=== PATIENT | male | born 1990 | race Caucasian/White ===

== ENCOUNTER → 2020-06-04 09:12 | Outpatient (BNVA) | payer SELFPAY | PROVIDERS: Visit Provider Internal Medicine | DX: M79.10 Myalgia, unspecified site (principal); M54.5 Low back pain; M54.2 Cervicalgia; Z11.1 Encounter for screening for respiratory tuberculosis | CPT/HCPCS: 99204 ==

== ENCOUNTER 2023-07-06 11:39 | Emergency (ER) | payer OTHER, SELFPAY ==
[2023-07-06 11:57] VITALS: BP 120/81; PULSE 78; RESP 18; TEMP 36.4; O2SAT 100; BMI 24.3
[2023-07-06 12:03] LABS: Basophils % 0.1 %; Eosinophils # 0.2 10^3/uL (0.0-0.8); Eosinophils % 2.6 %; Hematocrit 45.6 % (37-53); Lymphocytes # 1.9 10^3/uL (0.8-4.8); Mean Corpuscular HGB Conc 35.1 g/dL (30-55); Mean Corpuscular Hemoglobin 30.7 pg (27-33); Mean Corpuscular Volume 87.5 fl (82-101); Mean Platelet Volume 10.7 fL (7.4-10.4); Monocytes # 1.1 10^3/uL (0.2-0.9); Neutrophils # 5.82 10^3/uL (1.8-7.7); Neutrophils % 64.1 %; Nucleated Red Blood Cells % 0 %; Platelet Count 186 10^3/cmm (157-399); Red Blood Count 5.21 10^6/uL (3.85-5.65); Red Cell Distribution Width 12.9 % (12.1-15.1); White Blood Count 9.09 10^3/uL (3.29-11.43)
[2023-07-06 12:23] LABS: Alanine Aminotransferase 26 U/L (0-41); Alkaline Phosphatase 82 U/L (40-130); Anion Gap 10.1 (5-19); Aspartate Amino Transferase 15 U/L (0-40); Blood Urea Nitrogen 12 mg/dL (6-20); Calcium 9.1 mg/dL (8.5-10.5); Carbon Dioxide 30 mmol/L (22-29); Chloride 102 mmol/L (98-107); Globulin 2.5 g/dL (1.3-4.6); Glomerular Filtration Rate 86.6 mL/min (90-130); Glucose 107 mg/dL (65-115); Lipase 27 U/L (13-60); Osmolality Calculated 286 mOsm/kg (285-295); Potassium 4.1 mmol/L (3.5-5.1); Sodium 138 mmol/L (136-145); Total Bilirubin 0.3 mg/dL (0.15-1.2); Total Protein 6.5 g/dL (6.6-8.7)
--- NOTE | 2023-07-06 13:54 | CTR_ITS ---
PROCEDURE INFORMATION: Exam: CT Abdomen And Pelvis With Contrast Exam date and time: 07/06/2023 3:46 PM Age: 33 years old Clinical indication: Abdominal pain; Generalized; Additional info: Abd pain, n/v, HX of hernia, R/O obstruction TECHNIQUE: Imaging protocol: Computed tomography of the abdomen and pelvis with contrast. Radiation optimization: All CT scans at this facility use at least one of these dose optimization techniques: automated exposure control; mA and/or kV adjustment per patient size (includes targeted exams where dose is matched to clinical indication); or iterative reconstruction. Contrast material: OMNI 350; Contrast volume: 100 ml; Contrast route: INTRAVENOUS (IV); REPORTING DATA: Count of CT and Cardiac NM exams in prior 12 months: This patient has received 0 known CTs and 0 known cardiac nuclear medicine studies in the 12 months prior to the current study. COMPARISON: MRI Bilat Hips w/wo [id number] 03/12/2019 11:37 AM RADIATION DOSE METRICS: Total DLP (mGy-cm): 410 FINDINGS: Lungs: No significant pathology at the imaged lung bases. Liver: No significant liver pathology. Gallbladder and bile ducts: No significant gallbladder pathology. No biliary dilatation. Pancreas: No significant pancreatic pathology. Spleen: No significant splenic pathology. Adrenal glands: No significant adrenal pathology. Kidneys and ureters: Minimal asymmetric left renal cortical atrophy. Stomach and bowel: Large amount of colonic stool. Appendix: No appendiceal pathology evident. Intraperitoneal space: No ascites. Vasculature: No abdominal aortic aneurysm. Lymph nodes: Mild mesenteric lymphadenopathy with nodes in the left abdomen measuring up to 9 mm short axis. Urinary bladder: Urinary bladder is nondistended limiting assessment of the wall. Reproductive: Moderate prostatomegaly. Bones/joints: No significant bony pathology. Soft tissues: Moderate fat containing umbilical hernia. CT/CT abdomen pelvis w con* [id number] IMPRESSION: 1. No acute pathology. 2. Moderate fat containing umbilical hernia. 3. Large amount of colonic stool. 4. Mesenteric lymphadenopathy.
--- NOTE | 2023-07-06 13:55 | W.ED.NAVMDI ---
HPI - Nausea/Vomiting/Diarrhea General: Chief complaint: Nausea/Vomiting/Diarrhea Stated complaint: abd pain, N/V/D Time Seen by Provider: 07/06/23 13:46 History of Present Illness: 33-year-old male patient comes in today for complaints of gastric pain with nausea vomiting and diarrhea for 5 days. Patient appears nontoxic. Patient at this time takes medication for GERD, NSAID and duloxetine for rheumatoid arthritis. Patient reports about 5 days ago become ill his is also had a similar illness but it has persisted and he has had increasing mid epigastric pain. Patient appears in mild to no pain at rest. Pain is aggravated by eating. Patient also reports a umbilical hernia. Patient denies any drugs or alcohol including marijuana. Patient denies nicotine use. Associated nausea: Yes Associated symtoms: Reports nausea; Denies chest pain Review of Systems General: Reports: 10 or more systems reviewed and unremarkable except in HPI and below Const: Denies: fever(s) Card: Denies: chest pain Resp: Denies: dyspnea GI: Reports: abdominal pain, nausea, vomiting and diarrhea : Denies: difficulty urinating Musc: Denies: neck pain PFSH ED PFSH: Medical History GERD (gastroesophageal reflux disease) Rheumatoid arthritis Fibromyalgia Inflammatory polyarthritis Surgical History Hx of vasectomy Family History Mother In good health Other Arthritis Hypertension Social History Smoking and tobacco/nicotine status: never used tobacco/nicotine Alcohol intake: never Substance/Drug Use: never Household members: significant other Housing: House Current occupational status: employed Current occupation: [employer] Physical Exam Const: COMMON NORMALS: alert HENMT: COMMON NORMALS: normocephalic HEAD & SCALP: normocephalic Neck/C-Spine: COMMON NORMALS: full ROM Resp: COMMON NORMALS: normal respiratory effort Cardio: COMMON NORMALS: regular rate RATE: regular rate GI: PALPATION: Yes Firmness to palpation present (GI), Yes Tenderness to palpation present (GI) (Midepigastric) and Yes Other GI palpation findings present (Reducible umbilical hernia) Extremity: COMMON NORMALS: full ROM Neuro: SENSORIUM/ORIENTATION: Yes alert Skin: COMMON NORMALS: turgor normal GENERAL SKIN EXAM: turgor normal Course Vital Signs: Vital signs: Vital Signs Temperature 97.6 F 07/06/23 11:57 Pulse Rate 78 07/06/23 11:57 Respiratory Rate 18 07/06/23 11:57 Blood Pressure 120/81 07/06/23 11:57 Pulse Oximetry 100 07/06/23 11:57 Oxygen Delivery Me thod Room Air 07/06/23 11:57 MDM - Nausea/Vomiting/Diarrhea Medical Decision Making 33-year-old male comes in with epigastric pain along with nausea vomiting diarrhea for 5 days. On exam abdomen slightly firm with normal active bowel sounds. Patient does have a reducible umbilical hernia. No significant swelling in the extremities. Skin is warm and dry. Good perfusion of the skin is noted. Negative CVA tenderness. Vital signs are normal. Differential diagnosis includes not limited to hiatal hernia, pancreatitis, gastroenteritis, bowel obstruction, incarcerated hernia of the umbilicus, dehydration. CBC was unremarkable, CMP noted no significant abnormalities. CBC and CMP was unremarkable. CT of the abdomen and pelvis noted significant mild constipation and a fat-containing hernia but no signs of obstruction or other infectious process. Patient be started on some metoclopramide to help with nausea and vomiting along with gastritis, and patient will also be started on some MiraLAX to help with constipation. Recommend follow-up with primary care return to the ER as needed. Lab Data 07/06/23 11:50 07/06/23 11:50 Radiology Impressions Abdomen/Pelvis CT 07/06/23 13:54 IMPRESSION: 1. No acute pathology. 2. Moderate fat containing umbilical hernia. 3. Large amount of colonic stool. 4. Mesenteric lymphadenopathy. Laboratory Results WBC 9.09 10^3/uL (3.29-11.43) 07/06/23 11:50 RBC 5.21 10^6/uL (3.85-5.65) 07/06/23 11:50 Hgb 16.00 g/dL (11.27-16.99) 07/06/23 11:50 Hct 45.6 % (37-53) 07/06/23 11:50 MCV 87.5 fl (82-101) 07/06/23 11:50 MCH 30.7 pg (27-33) 07/06/23 11:50 MCHC 35.1 g/dL (30-55) 07/06/23 11:50 RDW 12.9 % (12.1-15.1) 07/06/23 11:50 Plt Count 186 10^3/cmm (157-399) 07/06/23 11:50 MPV 10.7 fL (7.4-10.4) H 07/06/23 11:50 Neut % (Auto) 64.1 % 07/06/23 11:50 Lymph % (Auto) 21.0 % 07/06/23 11:50 [place] % (Auto) 12.0 % 07/06/23 11:50 Eos % (Auto) 2.6 % 07/06/23 11:50 Baso % (Auto) 0.1 % 07/06/23 11:50 Neut # (Auto) 5.82 10^3/uL (1.8-7.7) 07/06/23 11:50 Lymph # (Auto) 1.9 10^3/uL (0.8-4.8) 07/06/23 11:50 [place] # (Auto) 1.1 10^3/uL (0.2-0.9) H 07/06/23 11:50 Eos # (Auto) 0.2 10^3/uL (0.0-0.8) 07/06/23 11:50 Baso # (Auto) 0.0 10^3/uL (0.0-0.1) 07/06/23 11:50 Nucleated RBC % (auto) 0 % 07/06/23 11:50 Nucleated RBCs # 0.0 /100WBC 07/06/23 11:50 Sodium 138 mmol/L (136-145) 07/06/23 11:50 Potassium 4.1 mmol/L (3.5-5.1) 07/06/23 11:50 Chloride 102 mmol/L (98-107) 07/06/23 11:50 Carbon Dioxide 30 mmol/L (22-29) H 07/06/23 11:50 Anion Gap 10.1 (5-19) 07/06/23 11:50 BUN 12 mg/dL (6-20) 07/06/23 11:50 Creatinine 1.0 mg/dL (0.7-1.2) 07/06/23 11:50 GFR Calculation 86.6 mL/min (90-130) L 07/06/23 11:50 Glucose 107 mg/dL (65-115) 07/06/23 11:50 Calculated Osmolality 286 mOsm/kg (285-295) 07/06/23 11:50 Calcium 9.1 mg/dL (8.5-10.5) 07/06/23 11:50 Total Bilirubin 0.3 mg/dL (0.15-1.2) 07/06/23 11:50 AST 15 U/L (0-40) 07/06/23 11:50 ALT 26 U/L (0-41) 07/06/23 11:50 Alkaline Phosphatase 82 U/L (40-130) 07/06/23 11:50 Total Protein 6.5 g/dL (6.6-8.7) L 07/06/23 11:50 Albumin 4.0 g/dL (3.5-5.2) 07/06/23 11:50 Globulin 2.5 g/dL (1.3-4.6) 07/06/23 11:50 Lipase 27 U/L (13-60) 07/06/23 11:50 All radiology interpretation(s) finalized by discharge Discharge Plan Discharge Patient Disposition: Home Clinical Impression: Gastritis Qualifiers: Gastritis type: unspecified gastritis Chronicity: unspecified Gastritis bleeding: without bleeding Qualified Code(s): K29.70 - Gastritis, unspecified, without bleeding Constipation Qualifiers: Constipation type: unspecified constipation type Qualified Code(s): K59.00 - Constipation, unspecified Condition: Stable Prescriptions: New metoclopramide HCl 10 mg tablet 10 mg PO Q6H 7 Days Qty: 28 0RF Miralax 17 gram/dose powder 17 g PO TIDWM Qty: 510 0RF No Action omeprazole 40 mg capsule,delayed release(DR/EC) 40 mg PO BID Qty: 120 1RF sucralfate [Carafate] 1 gram tablet 1 g PO BID Qty: 30 0RF duloxetine [Cymbalta] 60 mg capsule,delayed release(DR/EC) 60 mg PO BID 90 Days Qty: 180 1RF pregabalin 75 mg capsule 75 mg PO BID meloxicam 15 mg tablet 15 mg PO QPM Discharge Orders: Discharge ED (Routine); Ordered 07/06/23 Ordered By: Bill Telles Referrals: Gerardo Choudhary MD [Primary Care Provider] - Discharge Diet: Usual diet Discharge Activity: Increase activity as tolerated Patient Instructions: Constipation (ED) Activity Restrictions/Additional Instructions: Continue with routine medications as directed. Drink plenty of water and fluids. Take metoclopramide 10 mg 30 minutes before each meal of the day and 30 minutes before bedtime to help with nausea and vomiting and constipation. Take MiraLAX 17 g mixed in 8 ounces of water up to 3 times a day for control of constipation. Drink at least 2 L of water a day. Follow-up with primary care for further instructions. Return to ED for fever greater than 100.4, blood in vomit or stool, or new concerns. 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
[2023-07-06] MEDS: sodium chloride 0.9% 1,000 ML 999 ML IV (15:09)
[2023-07-06] MEDS: iohexol 350 mg/mL 500 mL Btl (per mL) IV (15:41)
== END 2023-07-06 16:54 | disposition home or self-care (01) ==
PROVIDERS: Emergency Medicine; Emergency Provider Nurse Practitioner Family; PCP Family Medicine
DX: K42.9 Umbilical hernia without obstruction or gangrene (principal); R59.1 Generalized enlarged lymph nodes; K29.70 Gastritis, unspecified, without bleeding; K59.00 Constipation, unspecified
CPT/HCPCS: 36415; 74177; 80053; 83690; 85025; 96360; 99285; J7030; Q9967

== ENCOUNTER 2023-07-20 07:14 | Day surgery (SDC) | payer OTHER, SELFPAY ==
[2023-07-20] VITALS (36 sets, daily range): BP systolic 89–130; BP diastolic 51–104; PULSE 81–121; RESP 17–33; TEMP 36.2–37.1; O2SAT 86–100; BMI 23.6
--- NOTE | 2023-07-20 06:34 | W.PM.OPSFHP ---
Same Day Surgery H&P Indication for Procedure/HPI DATE OF PROCEDURE: July 20, 2023 CHIEF COMPLAINT/INDICATIONFOR SURGICAL PROCEDURE: umbilical hernia PREOP DIAGNOSIS: umbilical hernia PLANNED PROCEDURE: Operation Date: 07/20/23 08:50 [place] p [id number] open umbilical hernia repair with mesh,: K42.9(Not Applicable) - Burak Dodson MD Medications/Allergies* Home Medications Medication Instructions Recorded Confirmed Type meloxicam 15 mg tablet 15 mg PO QPM 07/06/23 07/19/23 History pregabalin 75 mg capsule 75 mg PO BID 07/06/23 07/19/23 History Allergies/Adverse Reactions Allergy/AdvReac Type Severity Reaction Status Date / Time No Known Allergies Allergy Verified 07/06/23 11:59 Pertinent History/Comorbid Conditions* Medical History (Updated 07/14/23 @ 00:00 by RULA Monroe) GERD (gastroesophageal reflux disease) Rheumatoid arthritis Fibromyalgia Inflammatory polyarthritis Surgical History (Updated 10/22/22 @ 14:32 by Gerardo Choudhary MD) Hx of vasectomy Family History (Updated 06/04/20 @ 09:24 by Veena Castillo LPN) In good health Mother Arthritis Hypertension Social History Smoking and tobacco/nicotine status: never used tobacco/nicotine Alcohol intake: never Substance/Drug Use: never Household members: significant other Housing: House Current occupational status: employed Current occupation: [employer] Pertinent Exam Findings alert, oriented x 3, clear to auscultation bilaterally and regular rate & rhythm Recommendations Surgery/Procedure today Coding Level of Care Code Acute Code for Chg Fwd
[2023-07-20] MEDS: sodium chloride 0.9% 1,000 ML 30 ML IV (07:37)
[2023-07-20] MEDS: ceFAZolin 2,000 MG in sodium chloride 0.9% (plus) 50 ML 100 MG IV (08:53)
[2023-07-20] MEDS: lidocaine-epi 1% PF 1:200,000 30 mL SDV 10 ML INJECTION (09:14)
[2023-07-20] MEDS: BUPivacaine 0.25% INJ 10 mL INJECTION (09:14)
--- NOTE | 2023-07-20 09:56 | P.ANESASSM_ITS ---
Pre-Anesthetic Assessment Height/Weight: Height 1.75 m Weight 72.575 kg Temp Pulse Resp BP Pulse Ox O2 Del Method 97.3 F L 81 18 116/82 97 Room Air 07/20/23 07:26 07/20/23 07:26 07/20/23 07:26 07/20/23 07:26 07/20/23 07:26 07/20/23 07:26 Preop Diagnosis: umbilical hernia Operation Date: 07/20/23 08:50 Proposed Procedures p [id number] open umbilical hernia repair with mesh,: K42.9(Not Applicable) - Burak Dodson MD Familial anesthetic complications: none Was Beta Sultana taken within 24 hours: N/A Was Clonidine taken within 24 hours: N/A Last intake: Intake Last Liquid Date 07/19/23 Last Liquid Time 18:00 Last Solid Date 07/19/23 Last Solid Time 16:30 Social No alcohol and No tobacco Exam alert, oriented x 3, clear to auscultation bilaterally and regular rate & rhythm Airway Submandibular: within normal limits Cervical ROM: within normal limits Mallampati: Class II Dentition: full GI Gastroesophageal Reflux Disease [facility] [place] Osteoarthritis/DJD and Rheumatoid Arthritis Anesthetic Plan ASA status: 2 Anesthesia: General Medications/Allergies Home Medications Medication Instructions Recorded Confirmed Last Taken Type duloxetine 60 mg capsule,delayed 60 mg PO BID 90 days #180 caps 04/08/23 07/19/23 07/19/23 Rx release (Cymbalta) omeprazole 40 mg capsule,delayed 40 mg PO BID #120 caps 04/08/23 07/19/23 07/19/23 Rx release sucralfate 1 gram tablet (Carafate) 1 g PO BID #30 tabs 04/08/23 07/19/23 07/05/23 Rx meloxicam 15 mg tablet 15 mg PO QPM 07/06/23 07/19/23 07/19/23 History polyethylene glycol 3350 17 17 g PO TIDWM #510 grams 07/06/23 07/19/23 07/15/23 Rx gram/dose oral powder (Miralax) pregabalin 75 mg capsule 75 mg PO BID 07/06/23 07/19/23 07/19/23 History Allergies Allergy/AdvReac Type Severity Reaction Status Date / Time No Known Allergies Allergy Verified 07/20/23 07:21 Current Medications Generic Name Dose Route Start Last Admin Trade Name Louise PRN Reason Stop Dose Admin Sodium Chloride 1,000 mls @ 30 mls/hr 07/20/23 07:30 07/20/23 07:37 Sodium Chloride 0.9% IV 07/21/23 07:29 30 mls/hr .Q24H RADHA Administration PFSH Anesthesia Medical History GERD (gastroesophageal reflux disease) Rheumatoid arthritis Fibromyalgia Inflammatory polyarthritis Surgical History Hx of vasectomy Family History Mother In good health Other Arthritis Hypertension Social History Smoking and tobacco/nicotine status: never used tobacco/nicotine Alcohol intake: never Substance/Drug Use: never Household members: significant other Housing: House Current occupational status: employed Current occupation: [employer] Anesthesia Cardiac Studies: No Data to Display
--- NOTE | 2023-07-20 10:13 | PM.OP ---
Operative Report Date of procedure: July 20, 2023 Pre-op diagnosis: Incarcerated umbilical hernia Post-op diagnosis: Same Post-op findings: 2x1 cm incarcerated umbilical hernia containing preperitoneal fat. Procedure done: Open umbilical hernia repair with mesh Implants: 4.3 cm Ventralex Specimens removed/disposition: None Surgeon: Burak Dodson MD Development Advisor: AIMEE OR Staff Estimated blood loss: 5 Complications: none Brief History: 33-year-old male with history of umbilical hernia who presented to my clinic for evaluation for repair. After discussion of all risk and benefits as documented in my preop note we decided to proceed. Procedure: Patient was brought into the OR, placed in the supine position, general esthesia was given and patient was intubated. Abdomen was prepped and draped in the usual sterile fashion. Timeout was conducted. A semicircular infraumbilical incision measuring about 4 cm was made, the incision was deepened to the level of the fascial ring with electrocautery, the umbilical stalk and hernia was encircled with a hemostat. The hernia sac was then from the umbilical stalk and umbilical stalk was transected revealing the underlying hernia. At this point the hernia sac was opened and it was noted to contain only preperitoneal fat, the contents were reduced into the preperitoneal space, I then proceeded to clean up the fascial edges with electrocautery to allow for a good landing zone for my stitches. The preperitoneal space was developed with blunt dissection, a 4.3 cm Ventralex hernia patch was then placed in the preperitoneal space, the hernia was then closed using #0 Prolene [id number] sutures, taking careful consideration of not injuring underlying structures and incorporating the mesh tails. Hemostasis was verified, local anesthesia was injected in the fascia. The wound was irrigated with saline. The umbilical stalk was then packed to the fascia using #2-0 Vicryl to recreate the umbilicus. The wound was then closed in layers using #3-0 Vicryl for the subcutaneous tissue and #4 Monocryl for the skin. Dermabond was applied and cotton balls and dressing was applied and umbilicus also. All counts were correct at the end of the procedure. The patient tolerated well and was extubated and transferred to the PACU in stable condition
[2023-07-20] MEDS: FUROsemide 10 mg/mL SDV 2mL IVP (11:08)
[2023-07-20] MEDS: ondansetron 2 mg/ML SDV 2 mL 4 MG IVP ×2 (11:30→13:20)
[2023-07-20] MEDS: diphenhydrAMINE 50 mg/mL SDV 1mL 12.5 MG IVP (11:50)
[2023-07-20] MEDS: ipratropium-albuterol 3 mL Neb (11:52)
--- NOTE | 2023-07-20 12:15 | PC.NURSE ---
1053 - to pacu via OR staff to this nurse - simple mask at 6 placed on - 1107 - anesthesia notified of oxygen saturations decreasing - Dr Dozier at pts side - ordered 10 IVP lasix - given at 1108 per this nurse - simple mask remains in place at 6L - 02 sats increasing to 92-94% - 1130 - noted to have increase in coughing - pt coughing up bright red blood and states yes to nausea - 4mg IVP zofran given per this nurse - 1145- anesthesia at side 02 sats at 88-90% pt encouraged to cough - 1150 - 12.5 benadryl given per this nurse per Dr Dozier order as well as duoneb started per anesthesia order - pt sats up to 97-99% - jimbo neb without difficulty - 1215 - pt placed on NC at 3L - sats ranging from 90-94% - pt continues to cough up bright red blood at times - 1220 - 02 sats decreased to 87-89% - anesthesia notified - awaiting orders - continued to encourage pt to cough - 02 sats increase with cough - 1226 - currently at 92% NC 3L
--- NOTE | 2023-07-20 12:38 | PC.NURSE ---
Dr Tobin in unit and updated on pts condition - Dr Dozier at pts side
--- NOTE | 2023-07-20 12:58 | XR_ITS ---
WS: [id number] Portable AP upright chest, 07/20/2023 Clinical Data: decrease in 02 sats Comparison: None. Findings: There are bilateral patchy opacities in both lungs more on the left than the right. These o pacities could represent pneumonia and/or atelectasis. The heart is normal. No pneumothorax is seen. There are no nodules or masses. Monitor leads are on the chest wall. Impression: Diffuse bilateral pulmonary opacities which could represent diffuse pneumonia and/or atelectasis.
--- NOTE | 2023-07-20 13:09 | PC.NURSE ---
1309 - stat chest x ray obtained - Dr Dozier at side to assess pt -
--- NOTE | 2023-07-20 16:26 | ANE.PACU2 ---
Inpatient post-anesthesia follow up: Airway intact: Yes Vital signs: Temperature 98.8 F Pulse Rate 101 Respiratory Rate 18 Blood Pressure 89/57 Pulse Oximetry 92 Oxygen Delivery Me thod Nasal Cannula Oxygen Flow Rate 3 Fraction of Inspir ed Oxygen Hydration adequate: Yes Pain level: 3 Mental status: Baseline Additional Comments: Postop laryngospasm, neg pressure pulmonary edema--took a while to recover, ultimately fit for discharge
== END 2023-07-20 15:35 | disposition home or self-care (01) ==
PROVIDERS: PCP Family Medicine; Visit Provider Surgery
PROC: (CPT 49594; principal; 2023-07-20 08:50)
DX: K42.0 Umbilical hernia with obstruction, without gangrene (principal); K21.9 Gastro-esophageal reflux disease without esophagitis; M19.90 Unspecified osteoarthritis, unspecified site; M06.9 Rheumatoid arthritis, unspecified; M79.7 Fibromyalgia
CPT/HCPCS: 49594; 71045; J0330; J0690; J1100; J1200; J1940; J2250; J2405; J2704; J2710; J3010; J3490; J7030

== ENCOUNTER 2023-09-06 12:44 | Outpatient (CLI) | payer OTHER, SELFPAY ==
--- NOTE | 2023-09-06 12:52 | XR_ITS ---
WS: [id number] CERVICAL SPINE TECHNIQUE: 3 views of the cervical spine CLINICAL INFORMATION: FIBROMYALGIA/DORSALGIA COMPARISON: 2019 FINDINGS: Slight exaggeration of the normal cervical lordosis. Disc space heights are well-maintained. Normal d ens. Normal C1-2 articulation. Normal prevertebral soft tissues. Slight anterolisthesis C7 on T1. No instability on flexion-extension. Normal posterior elements. Mild spondylitic changes with mild facet arthropathy in the mid cervical spine. Lung apices are well aerated. Incidental azygos fissure in th e RIGHT lung apex. IMPRESSION: 1. Slight exaggeration of the normal cervical lordosis. 2. Slight anterolisthesis C7 on T1. No instability on flexion extension. 3. Mild disc space narrowing C5-6. 4. Vertebral body heights and disc space heights are otherwise well-maintained. 5. Normal prevertebral soft tissues. 6. No other remarkable findings.
== END 2023-09-06 12:45 | disposition home or self-care (01) ==
LOC: RAD 12:48
PROVIDERS: PCP Family Medicine; Visit Provider Internal Medicine
DX: M79.7 Fibromyalgia (principal); M43.12 Spondylolisthesis, cervical region
CPT/HCPCS: 72050

== ENCOUNTER 2023-11-02 07:05 | Outpatient (CLI) | payer OTHER, SELFPAY ==
--- NOTE | 2023-11-02 07:16 | MR_ITS ---
WS: [id number] MRI CERVICAL SPINE NONCONTRAST HISTORY: CERVICAL RADICULOPATHY COMPARISON: 09/17/2015 Technique: Multiplanar, multisequence noncontrast imaging of the cervical spine. Normal cervical alignment with no compression fracture or significant disc space narrowing. Signal within the cervical cord is normal. Visualized posterior fossa is unremarkable. Chiari I malformation is reidentified. Cerebellar tonsils extends 6 mm beyond the foramen magnum. No cervical syrinx. Cord signal is negative. C2-C3: Normal. C3-C4: Mild annular disc bulging. Small foraminal osteophytes. No stenosis. C4-C5: Mild annular disc bulging and osteophytic ridging. Mild bilateral foraminal stenosis, LEFT gre ater than RIGHT. C5-C6: Mild osteophytic ridging. Mild bilateral foraminal narrowing. Mild facet arthritis. C6-C7: Small foraminal osteophytes. No stenosis. C7-T1: Normal. Paraspinal soft tissue are normal. IMPRESSION: 1. No high-grade central or foraminal stenosis. 2. Stable Chiari I malformation. 3. No cervical cord syrinx. 4. Osteophytic ridging and disc bulging at C3-4 through C5-6 causing mild bilateral foraminal stenos is. Most significant disc osteophyte disease at C4-5.
--- NOTE | 2023-11-02 07:17 | MR_ITS ---
WS: [id number] MRI LUMBAR SPINE NONCONTRAST HISTORY: LOW BACK PAIN COMPARISON: None available. TECHNIQUE: Sagittal and axial multisequence imaging is submitted. Normal lumbar alignment with no compression fractures or marrow edema. Disc spaces and vertebral body heights are well-preserved. Conus terminates normally at L1. L1-L2: Normal. L2-L3: Mild facet and ligamentum flavum hypertrophy. There is very mild encroachment upon the foramin a. L3-L4: Mild annular disc bulging with osteophytic ridging and facet arthritis. Very mild encroachment upon the foramina and subarticular recesses. L4-L5: Mild annular disc bulging and facet joint arthritis. Mild bilateral foraminal stenosis. There is encroachment upon the exiting L4 nerve roots. L5-S1: Mild annular disc bulging and facet arthritis. Mild encroachment upon the exiting L5 nerve lolis ts bilaterally but greater on the LEFT. Paravertebral soft tissues are normal. IMPRESSION: 1. No high-grade central or foraminal stenosis. 2. Moderate encroachment upon the exiting L4 and L5 nerve roots at L4-5 and L5-S1, greatest on the L EFT. Encroachment is predominately due to facet joint arthritis and osteophyte disease. 3. Very mild encroachment upon the foramina and subarticular recesses of L3-4.
== END 2023-11-02 07:06 | disposition home or self-care (01) ==
LOC: RAD 07:05
PROVIDERS: PCP Family Medicine; Visit Provider Internal Medicine
DX: M54.50 Low back pain, unspecified (principal); G93.5 Compression of brain; M50.11 Cervical disc disorder with radiculopathy, high cervical region; M50.122 Cervical disc disorder at C5-C6 level with radiculopathy; M48.02 Spinal stenosis, cervical region; M47.816 Spondylosis without myelopathy or radiculopathy, lumbar region
CPT/HCPCS: 72141; 72148

== ENCOUNTER 2023-12-27 08:20 | Outpatient (CLI) | payer SELFPAY ==
[2023-12-27 09:21] LABS: HF Add Manual Diff No
[2023-12-27 09:30] LABS: Basophils % 0.2 %; Hematocrit 48.3 % (37-53); Lymphocytes # 1.4 10^3/uL (0.8-4.8); Lymphocytes % 16.2 %; Mean Corpuscular HGB Conc 34.2 g/dL (30-55); Mean Corpuscular Hemoglobin 30.6 pg (27-33); Mean Corpuscular Volume 89.4 fl (82-101); Mean Platelet Volume 10.9 fL (7.4-10.4); Monocytes # 0.5 10^3/uL (0.2-0.9); Monocytes % 5.8 %; Neutrophils # 6.77 10^3/uL (1.8-7.7); Neutrophils % 77.2 %; Nucleated Red Blood Cells % 0 %; Platelet Count 213 10^3/cmm (157-399); Red Cell Distribution Width 13.3 % (12.1-15.1); White Blood Count 8.77 10^3/uL (3.29-11.43)
[2023-12-27 09:36] LABS: Alanine Aminotransferase 31 U/L (0-41); Albumin Level 4.2 g/dL (3.5-5.2); Alkaline Phosphatase 75 U/L (40-130); Anion Gap 12.1 (5-19); Aspartate Amino Transferase 16 U/L (0-40); Blood Urea Nitrogen 20 mg/dL (6-20); Calcium 9.1 mg/dL (8.5-10.5); Carbon Dioxide 29 mmol/L (22-29); Chloride 100 mmol/L (98-107); Chol HDL Ratio 3.51 mg/dL (1.0-5.00); Cholesterol 172 mg/dL (0-200); Glomerular Filtration Rate 77.6 mL/min (90-130); Glucose 120 mg/dL (65-115); HDL Cholesterol 49 mg/dL (60-100); LDL Cholesterol Calculated 100 mg/dL (50-129); LDL HDL Ratio 2.04 RATIO (0.00-3.22); Osmolality Calculated 288 mOsm/kg (285-295); Potassium 4.1 mmol/L (3.5-5.1); Sodium 137 mmol/L (136-145); Total Bilirubin 0.4 mg/dL (0.15-1.2); Total Protein 7.2 g/dL (6.6-8.7); Triglycerides 116 mg/dL (0-150)
[2023-12-27 09:46] LABS: Estmated Average Glucose 111; Hemoglobin A1C 5.5 % (4.0-6.0)
== END 2023-12-27 08:21 | disposition home or self-care (01) ==
LOC: LAB 08:21
PROVIDERS: PCP Family Medicine; Visit Provider Dermatology
DX: Z01.89 Encounter for other specified special examinations (principal)
CPT/HCPCS: 36415

== ENCOUNTER 2024-02-10 19:20 | Emergency (ER) | payer OTHER, SELFPAY ==
[2024-02-10 19:24] VITALS: BP 110/75; PULSE 99; RESP 16; TEMP 36.7; O2SAT 95
--- NOTE | 2024-02-10 19:35 | CTR_ITS ---
PROCEDURE INFORMATION: Exam: CT Chest With Contrast; Diagnostic Exam date and time: 02/10/2024 8:19 PM Age: 33 years old Clinical indication: Nausea and other: Extremity numbness; Abdominal pain; Generalized; Other: N/a; Prior surgery; Surgery date: 6+ months; Surgery type: Umbilical hernia repair; Patient HX: C/O abd pain with nausea and numbness to all four extremities. ; Additional info: Trauma TECHNIQUE: Imaging protocol: Diagnostic computed tomography of the chest with contrast. Radiation optimization: All CT scans at this facility use at least one of these dose optimization techniques: automated exposure control; mA and/or kV adjustment per patient size (includes targeted exams where dose is matched to clinical indication); or iterative reconstruction. Contrast material: OMNI 350; Contrast volume: 100 ml; Contrast route: INTRAVENOUS (IV); COMPARISON: CR XR chest 1V portable [id number] 07/20/2023 1:05 PM RADIATION DOSE METRICS: Total DLP (mGy-cm): 732.13 FINDINGS: Trachea: Central airways are patent. Lungs: Azygous fissure. No focal consolidations. Pleural spaces: Unremarkable. No pneumothorax. No pleural effusion. Heart: Unremarkable. No cardiomegaly. No pericardial effusion. Lymph nodes: Unremarkable. No enlarged lymph nodes. Vasculature: Unremarkable. No aortic aneurysm. Bones/joints: Unremarkable. No acute fracture. Soft tissues: Unremarkable. PROCEDURE INFORMATION: Exam: CT Abdomen And Pelvis With Contrast Exam date and time: 02/10/2024 8:19 PM Age: 33 years old Clinical indication: Nausea and other: Extremity numbness; Abdominal pain; Generalized; Other: N/a; Prior surgery; Surgery date: 6+ months; Surgery type: Umbilical hernia repair; Patient HX: C/O abd pain with nausea and numbness to all four extremities. ; Additional info: Trauma TECHNIQUE: Imaging protocol: Computed tomography of the abdomen and pelvis with contrast. Radiation optimization: All CT scans at this facility use at least one of these dose optimization techniques: automated exposure control; mA and/or kV adjustment per patient size (includes targeted exams where dose is matched to clinical indication); or iterative reconstruction. Contrast material: OMNI 350; Contrast volume: 100 ml; Contrast route: INTRAVENOUS (IV); COMPARISON: CT abdomen pelvis w con* [id number] 07/06/2023 3:46 PM RADIATION DOSE METRICS: Total DLP (mGy-cm): 732.13 FINDINGS: Liver: Normal. No mass. Gallbladder and biliary ducts: Normal. No calcified stones. No ductal dilation. Pancreas: Normal. No ductal dilation. Spleen: Normal. No splenomegaly. Adrenal glands: Normal. No mass. Kidneys and ureters: Normal. No hydronephrosis. Stomach and bowel: The stomach is distended. There is fecalization of stool within loops of bowel in the left hemiabdomen suggesting slow transit. No transition point identified. Moderate stool burden. Appendix: No evidence of appendicitis. Intraperitoneal space: Unremarkable. No free air. No significant fluid collection. Vasculature: Unremarkable. No abdominal aortic aneurysm. Lymph nodes: Unremarkable. No enlarged lymph nodes. Urinary bladder: Unremarkable as visualized. Reproductive: Unremarkable as visualized. Bones/joints: Unremarkable. No acute fracture. Soft tissues: Mild fat stranding around umbilicus. CT/CT chest abdpel w/*[id number] IMPRESSION: No acute findings within the chest. IMPRESSION: 1. No traumatic findings within the abdomen or pelvis. 2. The stomach is distended. There is fecalization of stool within loops of bowel in the left hemiabdomen suggesting slow transit. No transition point identified. Moderate stool burden. 3. Mild fat stranding around umbilicus.
[2024-02-10 19:56] LABS: ABG PCO2 37.2 mmHg (35-45); ABG PH Result 7.39 (7.35-7.45); Alveolar-Arterial Oxygen Gradi 1.6 mmHg (5-10); Arterial Blood Gas Hematocrit 57.3 % (42-52); Base Excess ABG -1.7 mmol/L (-2.0-2.0); Blood Gas Allen Test Pos; Blood Gas Operator Identificat jlb; Blood Gas Sample Site Radial, right; Blood Gas Sample Type Arterial; Carboxyhemoglobin 0.7 %THgb (0.4-20.1); HCO3 ABG 22.8 mmol/L (22-26); HGB O2 Sat 96.3 % (95-100); Ionized Calcium Level - ABG 1.2 mmol/L (1.1-1.4); Methemoglobin 0.8 % (0.4-1.5); Oxygen Saturation ABG 97.8; PO2 ABG 90.3 mmHg (80.0-100.0); PO2 FiO2 Ratio Arterial Blood 430; Potassium Level - ABG 3.1 mmol/L (3.5-5.0); Total Hemoglobin 18.7 g/dL (14-18)
[2024-02-10 20:15] LABS: Basophils % 0.1 %; Eosinophils # 0.7 10^3/uL (0.0-0.8); Eosinophils % 6.2 %; Hematocrit 51.5 % (37-53); Lymphocytes # 1.5 10^3/uL (0.8-4.8); Mean Corpuscular HGB Conc 34.6 g/dL (30-55); Mean Corpuscular Hemoglobin 30.3 pg (27-33); Mean Corpuscular Volume 87.7 fl (82-101); Mean Platelet Volume 11.1 fL (7.4-10.4); Monocytes # 0.8 10^3/uL (0.2-0.9); Neutrophils # 7.75 10^3/uL (1.8-7.7); Neutrophils % 72.5 %; Nucleated Red Blood Cells % 0 %; Platelet Count 220 10^3/cmm (157-399); Red Blood Count 5.87 10^6/uL (3.85-5.65); White Blood Count 10.68 10^3/uL (3.29-11.43)
[2024-02-10] MEDS: iohexol 350 mg/mL 500 mL Btl (per mL) IV (20:21)
--- NOTE | 2024-02-10 20:29 | W.ED.ABDPA2 ---
HPI - Abdominal Pain General: Chief Complaint: Abdominal Pain Stated Complaint: Abd Pain\No Feeling in Legs Time Seen by Provider: 02/10/24 19:31 History of Present Illness: 33-year-old man with a history of GERD, rheumatoid arthritis, fibromyalgia who presents to the emergency room with abdominal pain. He also reports numbness and tingling in his legs and arms. He has had extreme nausea he says. No vomiting. Abdominal pain in his epigastric region. No known fevers. No chest pain. No shortness of breath. Review of Systems Narrative: Constitutional symptoms: Negative except as documented in HPI. Skin symptoms: Negative except as documented in HPI. Eye symptoms: Negative except as documented in HPI. ENMT symptoms: Negative except as documented in HPI. Respiratory symptoms: Negative except as documented in HPI. Cardiovascular symptoms: Negative except as documented in HPI. Gastrointestinal symptoms: Negative except as documented in HPI. Genitourinary symptoms: Negative except as documented in HPI. Musculoskeletal symptoms: Negative except as documented in HPI. Neurologic symptoms: Negative except as documented in HPI. Psychiatric symptoms: Negative except as documented in HPI. Endocrine symptoms: Negative except as documented in HPI. PFSH ED PFSH: Medical History GERD (gastroesophageal reflux disease) Rheumatoid arthritis Fibromyalgia Inflammatory polyarthritis Surgical History Hx of vasectomy Family History Mother In good health Other Arthritis Hypertension Social History Smoking and tobacco/nicotine status: never used tobacco/nicotine Alcohol intake: never Substance/Drug Use: never Household members: significant other Housing: House Current occupational status: employed Current occupation: [employer] Physical Exam Narrative: EXAM NARRATIVE: General: Alert, no acute distress. Skin: Warm, dry. Head: Normocephalic, atraumatic. Neck: Supple, trachea midline. Eye: Extraocular movements are intact. Ears, nose, mouth and throat: mucosa moist. Cardiovascular: Regular, Normal peripheral perfusion. Respiratory: Lungs are clear to auscultation, respirations are non-labored, breath sounds are equal, Symmetrical chest wall expansion. Gastrointestinal: Soft, moderate epigastric tenderness to palpation, Non distended Musculoskeletal: Normal ROM, no deformity. Neurological: Alert and oriented, No focal neurological deficit observed. Psychiatric: Cooperative, appropriate mood & affect. Course Vital Signs: Vital signs: Vital Signs Temperature 98.0 F 02/10/24 19:24 Pulse Rate 108 H 02/10/24 21:33 Respiratory Rate 16 02/10/24 21:33 Blood Pressure 139/100 02/10/24 21:33 Pulse Oximetry 97 02/10/24 21:33 Oxygen Delivery Me thod Room Air 02/10/24 19:24 MDM - Abdominal Pain Medical Decision Making Lab Review: Laboratory results were reviewed and interpreted by myself the emergency room physician. No leukocytosis. Patient is a little bit polycythemic with a hemoglobin 17.8. BUN and creatinine are 19 and 0.9. Urine does show some signs of a urinary tract infection. CT of the chest abdomen and pelvis: No obvious acute processes in the chest. Abdomen shows an increase stool burden. No other acute process. This was reviewed and interpreted by myself the emergency room physician. I also reviewed the radiology report. I reviewed the patient's medical record. Reexamination: Patient remained stable. No increased work of breathing. No altered mental status. No focal motor deficits. Assessment and plan: Constipation Urinary tract infection ?Mag citrate, IV Rocephin - Discharged home - Discussed findings and plan with patient. Answered any questions. - All laboratory values were reviewed and interpreted personally by myself, the ER physician - All imaging was reviewed and interpreted personally by myself, the ER physician. - Evaluation and treatment of this problem were appropriate in the emergency setting Lab Data 02/10/24 19:54 02/10/24 19:54 Labs/Radiology: Radiology Impressions Chest/Abdomen/Pelvis CT 02/10/24 19:35 IMPRESSION: No acute findings within the chest. IMPRESSION: 1. No traumatic findings within the abdomen or pelvis. 2. The stomach is distended. There is fecalization of stool within loops of bowel in the left hemiabdomen suggesting slow transit. No transition point identified. Moderate stool burden. 3. Mild fat stranding around umbilicus. Laboratory Results WBC 10.68 10^3/uL (3.29-11.43) 02/10/24 19:54 RBC 5.87 10^6/uL (3.85-5.65) H 02/10/24 19:54 Hgb 17.80 g/dL (11.27-16.99) H 02/10/24 19:54 Hct 51.5 % (37-53) 02/10/24 19:54 MCV 87.7 fl (82-101) 02/10/24 19:54 MCH 30.3 pg (27-33) 02/10/24 19:54 MCHC 34.6 g/dL (30-55) 02/10/24 19:54 RDW 13.0 % (12.1-15.1) 02/10/24 19:54 Plt Count 220 10^3/cmm (157-399) 02/10/24 19:54 MPV 11.1 fL (7.4-10.4) H 02/10/24 19:54 Neut % (Auto) 72.5 % 02/10/24 19:54 Lymph % (Auto) 14.0 % 02/10/24 19:54 [place] % (Auto) 7.0 % 02/10/24 19:54 Eos % (Auto) 6.2 % 02/10/24 19:54 Baso % (Auto) 0.1 % 02/10/24 19:54 Neut # (Auto) 7.75 10^3/uL (1.8-7.7) H 02/10/24 19:54 Lymph # (Auto) 1.5 10^3/uL (0.8-4.8) 02/10/24 19:54 [place] # (Auto) 0.8 10^3/uL (0.2-0.9) 02/10/24 19:54 Eos # (Auto) 0.7 10^3/uL (0.0-0.8) 02/10/24 19:54 Baso # (Auto) 0.0 10^3/uL (0.0-0.1) 02/10/24 19:54 Nucleated RBC % (auto) 0 % 02/10/24 19:54 Nucleated RBCs # 0.0 /100WBC 02/10/24 19:54 Specimen Type Arterial 02/10/24 19:48 Sample Site Radial, right 02/10/24 19:48 ABG pH 7.39 (7.35-7.45) 02/10/24 19:48 ABG pCO2 37.2 mmHg (35-45) 02/10/24 19:48 ABG pO2 90.3 mmHg (80.0-100.0) 02/10/24 19:48 ABG PO2/FiO2 Ratio 430 02/10/24 19:48 ABG HCO3 22.8 mmol/L (22-26) 02/10/24 19:48 ABG O2 Saturation 97.8 02/10/24 19:48 ABG Base Excess -1.7 mmol/L (-2.0-2.0) 02/10/24 19:48 Chris Test Pos 02/10/24 19:48 A-a O2 Gradient 1.6 mmHg (5-10) L 02/10/24 19:48 Hematocrit 57.3 % (42-52) H 02/10/24 19:48 Hgb O2 Saturation 96.3 % (95-100) 02/10/24 19:48 Carboxyhemoglobin 0.7 %THgb (0.4-20.1) 02/10/24 19:48 Methemoglobin 0.8 % (0.4-1.5) 02/10/24 19:48 Total Hemoglobin 18.7 g/dL (14-18) H 02/10/24 19:48 Sodium 142.0 mmol/L (131-143) 02/10/24 19:48 Potassium 3.1 mmol/L (3.5-5.0) L 02/10/24 19:48 Glucose 150.0 mg/dL (70-115) H 02/10/24 19:48 Ionized Calcium 1.2 mmol/L (1.1-1.4) 02/10/24 19:48 O2 Delivery Device None 02/10/24 19:48 FiO2 21.0 % 02/10/24 19:48 Review Consultant ID [id number] 02/10/24 19:48 Sodium 141 mmol/L (136-145) 02/10/24 19:54 Potassium 3.7 mmol/L (3.5-5.1) 02/10/24 19:54 Chloride 103 mmol/L (98-107) 02/10/24 19:54 Carbon Dioxide 24 mmol/L (22-29) 02/10/24 19:54 Anion Gap 17.7 (5-19) 02/10/24 19:54 BUN 19 mg/dL (6-20) 02/10/24 19:54 Creatinine 0.9 mg/dL (0.7-1.2) 02/10/24 19:54 GFR Calculation 97.8 mL/min (90-130) 02/10/24 19:54 Glucose 158 mg/dL (65-115) H 02/10/24 19:54 Calculated Osmolality 298 mOsm/kg (285-295) H 02/10/24 19:54 Lactic Acid 1.9 mmol/L (0.5-2.2) 02/10/24 19:54 Calcium 8.9 mg/dL (8.5-10.5) 02/10/24 19:54 Total Bilirubin 0.4 mg/dL (0.15-1.2) 02/10/24 19:54 AST 17 U/L (0-40) 02/10/24 19:54 ALT 32 U/L (0-41) 02/10/24 19:54 Alkaline Phosphatase 83 U/L (40-130) 02/10/24 19:54 C-Reactive Protein 11.0 mg/L (0.0-4.9) H 02/10/24 19:54 Total Protein 7.1 g/dL (6.6-8.7) 02/10/24 19:54 Albumin 4.1 g/dL (3.5-5.2) 02/10/24 19:54 Globulin 3.0 g/dL (1.3-4.6) 02/10/24 19:54 Lipase 21 U/L (13-60) 02/10/24 19:54 Urine Color Yellow (Yellow) 02/10/24 21:04 Urine Appearance Clear (CLEAR) 02/10/24 21:04 Urine pH 6.5 (5-7) 02/10/24 21:04 Ur Specific [place] 1.010 (1.005-1.030) 02/10/24 21:04 Urine Protein 1+ (Negative) H 02/10/24 21:04 Urine Glucose (UA) Norm (Normal) 02/10/24 21:04 Urine Ketones 1+ (Negative) H 02/10/24 21:04 Urine Blood Neg (Negative) 02/10/24 21:04 Urine Nitrate Positive (Negative) A 02/10/24 21:04 Urine Bilirubin 1+ (Negative) H 02/10/24 21:04 Urine Urobilinogen 1 mg/dL (Negative) H 02/10/24 21:04 Ur Leukocyte Esterase Trace (Negative) H 02/10/24 21:04 Urine RBC 0-4 /hpf (0-2) H 02/10/24 21:04 Urine WBC 5-10 /hpf (0-5) H 02/10/24 21:04 Ur Squamous Epith Cells 0-4 /hpf (0-5) H 02/10/24 21:04 Amorphous Sediment Not Reportable 02/10/24 21:04 Urine Bacteria 1+ /hpf (NONE) H 02/10/24 21:04 Hyaline Casts 0-4 /lpf H 02/10/24 21:04 Urine Mucus 2+ /hpf 02/10/24 21:04 All radiology interpretation(s) finalized by discharge Discharge Plan Discharge Patient Disposition: Home Clinical Impression: Constipation, Urinary tract infection Condition: Stable Prescriptions: New cephalexin 500 mg capsule 500 mg PO BID 5 Days Qty: 10 0RF Miralax 17 gram/dose powder 17 g PO DAILY Qty: 510 0RF Rx Instructions: Take 1-2 scoops daily for the next 3 months to keep stools soft No Action trazodone 50 mg tablet 25 mg PO DAILY Qty: 10 0RF prednisone 20 mg tablet 40 mg PO DAILY 5 Days Qty: 10 0RF tizanidine 4 mg tablet 4 mg PO Q8H PRN (Reason: muscle spasticity) Qty: 30 0RF docusate sodium 100 mg capsule 100 mg PO DAILY Qty: 30 1RF polyethylene glycol 3350 [Miralax] 17 gram/dose powder 17 g PO TIDWM Qty: 510 1RF omeprazole 40 mg capsule,delayed release(DR/EC) 40 mg PO DAILY Qty: 90 1RF duloxetine [Cymbalta] 60 mg capsule,delayed release(DR/EC) 60 mg PO BID 90 Days Qty: 180 1RF tramadol 50 mg tablet 50 mg PO BID PRN (Reason: severe pain) Qty: 10 0RF meloxicam 15 mg tablet 15 mg PO DAILY Qty: 10 0RF Hold Instructions: Home Medication placed on hold at Doctor's office pregabalin 75 mg capsule 75 mg PO BID Discharge Orders: Discharge ED (Routine); Ordered 02/10/24 Ordered By: Shireen Eric Referrals: Gerardo Choudhary MD [Primary Care Provider] - Discharge Diet: Usual diet Discharge Activity: Increase activity as tolerated Patient Instructions: Constipation (ED), Urinary Tract Infection in Men (ED) Activity Restrictions/Additional Instructions: Thank you for choosing [facility] for your healthcare needs today. Please realize this is an emergency room and that we are providing you with a medical screening exam and this may not be complete and all inclusive of all the testing and or work up that you may need to determine your ailment or severity of your illness. You have been screened and evaluated and felt safe for discharge. Health conditions do change or evolve sometimes and as such it is important that you follow up with your Primary Doctor to be re checked, 3-5 days is a general good time frame for follow up. You are always welcome to return to the ED for re assessment if your symptoms are worsening or you have new concerns Coding Level of Care Code ED Career And Guidance Counselor for [facility] [place]
[2024-02-10 20:37] LABS: Lactic Sepsis W/Reflex 1.9 mmol/L (0.5-2.2)
[2024-02-10 20:39] LABS: Alanine Aminotransferase 32 U/L (0-41); Albumin Level 4.1 g/dL (3.5-5.2); Alkaline Phosphatase 83 U/L (40-130); Anion Gap 17.7 (5-19); Aspartate Amino Transferase 17 U/L (0-40); Blood Urea Nitrogen 19 mg/dL (6-20); Calcium 8.9 mg/dL (8.5-10.5); Carbon Dioxide 24 mmol/L (22-29); Chloride 103 mmol/L (98-107); Creatinine Clr Calc Pharmacy 122.1073; Glomerular Filtration Rate 97.8 mL/min (90-130); Glucose 158 mg/dL (65-115); Lipase 21 U/L (13-60); Osmolality Calculated 298 mOsm/kg (285-295); Potassium 3.7 mmol/L (3.5-5.1); Sodium 141 mmol/L (136-145); Total Bilirubin 0.4 mg/dL (0.15-1.2); Total Protein 7.1 g/dL (6.6-8.7)
[2024-02-10] MEDS: magnesium citrate Btl 296 mL PO (21:29)
[2024-02-10] MEDS: lidocaine 2% viscous 15 ML, aluminum-mag hydrox-simethicon 30 ML, sucralfate oral liq 1 GM PO (21:29)
[2024-02-10] MEDS: famotidine 20 mg/2 mL INJ 40 MG IVP (21:30)
[2024-02-10 21:33] VITALS: BP 139/100; PULSE 108; RESP 16; O2SAT 97
[2024-02-10 21:53] LABS: Bilirubin Urine 1+ (Negative); Blood Urine Neg (Negative); Glucose Urine UA Norm (Normal); Ketones Urine 1+ (Negative); Leukocyte Esterase Urine Trace (Negative); Nitrate Urine Positive (Negative); Protein Urine 1+ (Negative); Urine Appearance Clear (CLEAR); Urine Color Yellow (Yellow); Urobilinogen Urine 1 mg/dL (Negative); pH Urine 6.5 (5-7)
[2024-02-10 21:54] LABS: Bacteria Urine 1+ /hpf; Hyaline Casts Urine 0-4 /lpf; Mucus Urine 2+ /hpf; RBC Urine 0-4 /hpf (0-2); Squamous Epithelial Cell Urine 0-4 /hpf (0-5)
[2024-02-10] MEDS: cefTRIAXone 1,000 mg SDV 1000 MG IVP (22:25)
== END 2024-02-10 23:35 | disposition home or self-care (01) ==
PROVIDERS: Emergency Provider Emergency Medicine; PCP Family Medicine
DX: K59.00 Constipation, unspecified (principal); N39.0 Urinary tract infection, site not specified
CPT/HCPCS: 36415; 36600; 71260; 74177; 80051; 80053; 81001; 82330; 82805; 83605; 83690; 85025; 86140; 96374; 96375; 99285; J0696; J3490; Q9967